=== PATIENT | female | born 1945 | race Caucasian/White ===

== ENCOUNTER 2022-07-17 09:25 | Inpatient (IN) | payer MEDICARE, OTHER ==
[~2022-07-17] VITALS: Ht 167.6 cm; Wt 100.3 kg
[~2022-07-17 09:25] MED LIST: HYDACE5 PO; OXYACE5T PO
[2022-07-17 10:56] LABS: BASOPHILS ABSOLUTE AUTO 0.07 K/mm3 (0.00-0.23); BASOPHILS PERCENT AUTO 0 % (0-2); EOSINOPHILS ABSOLUTE AUTO 0.06 K/mm3 (0.00-0.68); EOSINOPHILS PERCENT AUTO 0 % (0-6); Hematocrit 40.5 % (33.0-51.0); Hemoglobin 13.4 g/dL (11.5-16.0); IMMATURE GRAN ABSOLUTE AUTO 0.12 K/mm3 (0.00-0.10); IMMATURE GRAN PERCENT AUTO 1 % (0-1); LYMPHOCYTES ABSOLUTE AUTO 1.57 K/mm3 (0.84-5.20); LYMPHOCYTES PERCENT AUTO 7 % (21-46); MONOCYTES ABSOLUTE AUTO 1.52 K/mm3 (0.16-1.47); MONOCYTES PERCENT AUTO 7 % (4-13); Mean Corpuscular HGB Conc 33.1 g/dL (31.5-36.5); Mean Corpuscular Volume 88 fL (80-100); Mean Platelet Volume 9.7 fL (9.1-12.4); NEUTROPHILS ABSOLUTE AUTO 19.95 K/mm3 (1.96-9.15); NEUTROPHILS PERCENT AUTO 86 % (41-73); Platelet Count 347 K/mm3 (150-400); RDW Coefficient Variation 15.1 % (11.7-14.2); RDW Standard Deviation 47.1 fL (35.1-46.3); Red Blood Cell Count 4.62 M/mm3 (3.80-5.20); White Blood Cell Count 23.29 K/mm3 (4.00-11.30)
[2022-07-17 11:15] LABS: Source, Urine Straight Cath
[2022-07-17 11:25] LABS: Albumin, Blood 2.1 g/dL (3.4-5.0); Albumin/Globulin Ratio 0.4 (0.8-1.8); Bilirubin, Total 0.7 mg/dL (0.1-1.0); Bun/Creatinine Ratio 17.1 (12.0-20.0); Calcium, Blood 9.3 mg/dL (8.5-10.1); Creatinine, Blood 2.86 mg/dL (0.40-1.00); Globulin, Blood 5.4 g/dL (2.2-4.0); Potassium, Blood 4.5 mmol/L (3.5-5.5); Total Protein, Blood 7.5 g/dL (6.4-8.2)
[2022-07-17 11:31] LABS: Appearance, Urine Hazy (Clear); Bilirubin, Urine Neg (Neg); Blood, Urine 2+ (Neg); Color, Urine Yellow (P-Yellow); Glucose Qualitative, Urine Neg (Neg); Ketones, Urine Neg (Neg); Leukocyte Esterase, Urine 2+ (Neg); Nitrite, Urine Pos (Neg); Protein, Urine 2+ (Neg); Urobilinogen, Urine NORM (Normal)
[2022-07-17 11:59] LABS: Squamous Epithelial Cells Mod /hpf (Few)
[2022-07-17 12:00] LABS: Amorphous Mod (0-Heavy); Bacteria Many /hpf; Mucus Light (0-Heavy)
[2022-07-17 15:29] LABS: Influenza A, PCR NEGATIVE (NEGATIVE); Influenza B, PCR NEGATIVE (NEGATIVE); Resp Syncytial Virus, PCR NEGATIVE (NEGATIVE); SARS-Cov-2 (COVID-19) PCR, MMC NEGATIVE (NEGATIVE)
--- NOTE | 2022-07-17 19:58 | NUR ---
END OF SHIFT SUMMARY: PATIENT ARRIVED TO THE UNIT AT 1722 THIS EVENING. PATIENT ALERT AND ORIENTED X4. PATIENT REQUIRED MULTIPLE STAFF TO SLIDE FROM THE GURNEY TO THE BED. PATIENT IS [place]. POOR HYGIENE NOTED. PATIENT IS VERY RED IN HER GROIN WITH A FOUL ODOR. (NEW ORDERS FROM DR. DELVALLE). PATIENT HAS SCRATCHES ON HER BACK THAT APPEAR TO BE FROM SCRATCHING. PATIENT HAS VERY LONG TOENAILS AND HAD DIRT AND SKIN INBETWEEN HER TOES. PATIENT REPORTS THAT SHE IS RECEPTIVE TO AND ANTICIPATING THE NEED TO GO TO REHAB UPON DISCHARGE. WHEN CLEANING UP THE PATIENT, IT WAS NOTED THAT THE PATIENT HAD DARK REDDISH DISCHARGE AND SMALL CLOTS ON THE WIPES. PATIENT REPORTED IT HAS BEEN A VERY LONG TIME SINCE HER LAST PAP SMEAR OR WOMEN'S HEALTH VISIT. PATIENT REPORTS LOSS OF APPETITE FOR 1-2 WEEKS, BUT THAT SHE HAS BEEN DRINKING PLENTY OF FLUIDS.
[2022-07-18 06:57] LABS: Hematocrit 33.3 % (33.0-51.0); Mean Corpuscular HGB 29.4 pg (26.0-34.0); Mean Corpuscular Volume 89 fL (80-100); Platelet Count 252 K/mm3 (150-400); RDW Coefficient Variation 15.4 % (11.7-14.2); RDW Standard Deviation 47.3 fL (35.1-46.3); Red Blood Cell Count 3.74 M/mm3 (3.80-5.20); White Blood Cell Count 16.03 K/mm3 (4.00-11.30)
[2022-07-18 07:14] LABS: Magnesium, Blood 2.1 mg/dL (1.6-2.4)
[2022-07-18 07:15] LABS: Bun/Creatinine Ratio 17.5 (12.0-20.0); Calcium, Blood 7.9 mg/dL (8.5-10.1); Creatinine, Blood 2.46 mg/dL (0.40-1.00); Potassium, Blood 4.3 mmol/L (3.5-5.5)
--- NOTE | 2022-07-18 07:31 | NUR ---
A/OX3-4; FORGETFUL. EMMONAK. IRRITABLE AT TIMES. DENIES PAIN AT THIS TIME. NYSTATIN TO SKIN FOLD REDNESS PER ORDERS. 2X MAX ASSIST PIVOT TO BSC; REFUSING GOWN AND GAITBELT BED ALARM SET. CARE CLUSTERED/ SLEEP PROMOTED. CALL LIGHT IN REACH, CALLED APPROPRIATELY; ENCOURAGED TO MAKE NEEDS KNOWN.
--- NOTE | 2022-07-18 11:25 | NUR ---
NOTIFIED OF POSITIVE BLOOD CULTURES BY PARISA IN LAB. GRAM POSITIVE COCCI IN CLUSTERS GROWING. MD NOTIFIED AT THIS TIME. NO CHANGE IN PATIENT CONDITION. NO VERBAL ORDERS RECEIVED FROM .
--- NOTE | 2022-07-18 18:05 | NUR ---
SHIFT SUMMARY: PATIENT A&OX3. HABEMATOLEL. PLEASANT, CALM AND COOPERATIVE WITH CARE. USES CALL LIGHT APPROPRIATELY. PATIENT WORK WITH PT MOBILITY IN BED THIS AM. DENIES CP/CHEST DISCOMFORT. DENIES SOB. PATIENT ON RA c SPO2 97%. LUNGS DIMINISHED T/O TO AUSCULTATION. PATIENT HAS BEEN INCONTININCE OF URINE, ATTENDS CHANGED AND Q2 TURN. IV TO L AC SALINE LOCKED AND IV TO R FOREARM INFUSING NS AT 125 MLS/HR. VITAL SIGNS REVIEWED. BED IN LOWEST POSITIONED, LOCKED AND BED ALARM ON FOR SAFETY. CALL LIGHT IN REACH.
[2022-07-19 05:43] LABS: BASOPHILS ABSOLUTE AUTO 0.07 K/mm3 (0.00-0.23); BASOPHILS PERCENT AUTO 1 % (0-2); EOSINOPHILS ABSOLUTE AUTO 0.16 K/mm3 (0.00-0.68); EOSINOPHILS PERCENT AUTO 1 % (0-6); Hematocrit 32.7 % (33.0-51.0); Hemoglobin 10.8 g/dL (11.5-16.0); IMMATURE GRAN ABSOLUTE AUTO 0.07 K/mm3 (0.00-0.10); IMMATURE GRAN PERCENT AUTO 1 % (0-1); LYMPHOCYTES ABSOLUTE AUTO 1.74 K/mm3 (0.84-5.20); LYMPHOCYTES PERCENT AUTO 13 % (21-46); MONOCYTES ABSOLUTE AUTO 0.91 K/mm3 (0.16-1.47); MONOCYTES PERCENT AUTO 7 % (4-13); Mean Corpuscular HGB 29.4 pg (26.0-34.0); Mean Corpuscular Volume 89 fL (80-100); Mean Platelet Volume 9.9 fL (9.1-12.4); NEUTROPHILS ABSOLUTE AUTO 10.77 K/mm3 (1.96-9.15); NEUTROPHILS PERCENT AUTO 79 % (41-73); Platelet Count 251 K/mm3 (150-400); RDW Coefficient Variation 15.4 % (11.7-14.2); RDW Standard Deviation 47.7 fL (35.1-46.3); Red Blood Cell Count 3.67 M/mm3 (3.80-5.20); White Blood Cell Count 13.72 K/mm3 (4.00-11.30)
[2022-07-19 06:02] LABS: Bun/Creatinine Ratio 16.3 (12.0-20.0); Calcium, Blood 7.7 mg/dL (8.5-10.1); Creatinine, Blood 2.21 mg/dL (0.40-1.00); Potassium, Blood 4.2 mmol/L (3.5-5.5)
--- NOTE | 2022-07-19 06:06 | NUR ---
CUSTOMER CONTACT REPRESENTATIVE SUMMARY: A&Ox4. PLEASANT AND COOPERATIVE WITH CARE. CALLS APPROPRIATELY AND ABLE TO COMMUNICATE NEEDS EFFECTIVELY. COMPLIANT WITH LAB DRAW AND HEPARIN ADMINISTRATION LAST NIGHT AND THIS AM IN SPITE OF HAVING "SEVERE FEAR OF PAIN" SHE CALLS IT. NO ACUTE CONCERNS T/O THE NIGHT. VSS. WILL REPORT TO ONCOMING RN.
--- NOTE | 2022-07-19 18:07 | NUR ---
SHIFT SUMMARY: PT A&O X4, PLEASANT AND COMMUNICATES WITH STAFF WELL. PT [place], NO COMPLAINTS OF PAIN. PT HAS INCREASED ANXIETY THROUGHOUT THE SHIFT. DR. LANGSTON ASSESSED PT AND A VERBAL ORDER OF HYDROYZINE 25MG PRN FOR ANXIETY. PT RESPONDED WELL AND WAS ABLE TO PARTICIPATE IN PT. PT HAD FAMILY VISIT AT BEDSIDE THROUGHOUT THE SHIFT. PT IN BED WITH CALL LIGHT WITHIN REACH.
--- NOTE | 2022-07-20 04:09 | NUR ---
SHIFT MOSTLY UNREMARKABLE. PATIENT TOOK 2100 MEDICATIONS WITHOUT DIFFICULTY. INCONTINENT OF URINE. ON CHANGING BRIEF SCANT AMOUNT OF BLOOD AND FOUL ODOR NOTED. PATIENT DENIES PAIN. PATIENT SLEPT THROUGH REMAINDER OF SHIFT. REPOSITIONED Q 2 HOURS. CALL LIGHT LEFT WITHIN REACH.
[2022-07-20 06:23] LABS: BASOPHILS ABSOLUTE AUTO 0.08 K/mm3 (0.00-0.23); BASOPHILS PERCENT AUTO 1 % (0-2); EOSINOPHILS ABSOLUTE AUTO 0.26 K/mm3 (0.00-0.68); EOSINOPHILS PERCENT AUTO 2 % (0-6); Hematocrit 36.2 % (33.0-51.0); Hemoglobin 11.7 g/dL (11.5-16.0); IMMATURE GRAN ABSOLUTE AUTO 0.09 K/mm3 (0.00-0.10); IMMATURE GRAN PERCENT AUTO 1 % (0-1); LYMPHOCYTES ABSOLUTE AUTO 1.81 K/mm3 (0.84-5.20); LYMPHOCYTES PERCENT AUTO 14 % (21-46); MONOCYTES ABSOLUTE AUTO 0.98 K/mm3 (0.16-1.47); MONOCYTES PERCENT AUTO 8 % (4-13); Mean Corpuscular HGB 29.5 pg (26.0-34.0); Mean Corpuscular HGB Conc 32.3 g/dL (31.5-36.5); Mean Corpuscular Volume 91 fL (80-100); Mean Platelet Volume 10.1 fL (9.1-12.4); NEUTROPHILS ABSOLUTE AUTO 9.46 K/mm3 (1.96-9.15); NEUTROPHILS PERCENT AUTO 75 % (41-73); Platelet Count 241 K/mm3 (150-400); RDW Coefficient Variation 16.2 % (11.7-14.2); RDW Standard Deviation 50.9 fL (35.1-46.3); Red Blood Cell Count 3.96 M/mm3 (3.80-5.20); White Blood Cell Count 12.68 K/mm3 (4.00-11.30)
[2022-07-20 07:17] LABS: Albumin, Blood 1.6 g/dL (3.4-5.0); Albumin/Globulin Ratio 0.3 (0.8-1.8); Bilirubin, Total 0.3 mg/dL (0.1-1.0); Bun/Creatinine Ratio 14.4 (12.0-20.0); Creatinine, Blood 2.01 mg/dL (0.40-1.00); Globulin, Blood 4.7 g/dL (2.2-4.0); Potassium, Blood 3.7 mmol/L (3.5-5.5); Total Protein, Blood 6.3 g/dL (6.4-8.2)
[2022-07-20] MEDS ORDERED: CEFD300 PO (12:57)
[2022-07-20] MEDS ORDERED: HYDHCL25 PO (12:58)
[2022-07-20] MEDS ORDERED: MICO100S VAG (12:59)
[2022-07-20] MEDS ORDERED: ONDA4 PO (12:59)
[2022-07-20] MEDS ORDERED: TRAZ50 PO (13:01)
[2022-07-20] MEDS ORDERED: VISBIOME 112.51 EACH PO (13:05)
[2022-07-20 15:00] LABS: Influenza A, PCR NEGATIVE (NEGATIVE); Influenza B, PCR NEGATIVE (NEGATIVE); Resp Syncytial Virus, PCR NEGATIVE (NEGATIVE); SARS-Cov-2 (COVID-19) PCR, MMC NEGATIVE (NEGATIVE)
--- NOTE | 2022-07-20 19:10 | NUR ---
DISCHARGE NOTE: PT A&O X4, PLEASANT AND ANXIOUS. PT DRESSED AND ATTENDS CHANGED, PERSONAL ITEMS PACKED BY DAYNA KHAN. PT IV REMOVED BY PHOTOGRAPHIC LABORATORY TECHNICIAN W/O SHANTA. PT TRANSPORTION ARRIVED WITH , PT TRANSFERED 2 PERSON ASSIST WITH GAIT BELT INTO . TRANSPORTATION ESCORTED PT TO THE [facility] TO BE TRANSPORTED TO [facility]. PT FAMILY NOTIFIED OF PT DISCHARGE TIME AND DESTINATION.
== END 2022-07-20 18:35 | DRG 872 ==
LOC: ER 09:25 → MEDS 13:33 → ERHOLD 13:33 → MEDS 17:26
PROVIDERS: Family Medicine; Nurse Practitioner Acute Care; Student in an Organized Health Care Education/Training Program; ADMIT Internal Medicine
DX: A41.51 Sepsis due to Escherichia coli [E. coli] (principal); N17.9 Acute kidney failure, unspecified; N30.00 Acute cystitis without hematuria; E87.1 Hypo-osmolality and hyponatremia; E87.20 Acidosis, unspecified; R65.20 Severe sepsis without septic shock; E66.01 Morbid (severe) obesity due to excess calories; R39.15 Urgency of urination; N18.9 Chronic kidney disease, unspecified; I12.9 Hypertensive chronic kidney disease with stage 1 through stage 4 chronic kidney disease, or unspecified chronic kidney disease; E86.0 Dehydration; W19.XXXA Unspecified fall, initial encounter; E86.1 Hypovolemia; Z20.822 Contact with and (suspected) exposure to COVID-19; Z23 Encounter for immunization; Z68.35 Body mass index [BMI] 35.0-35.9, adult; Z79.891 Long term (current) use of opiate analgesic; Z87.828 Personal history of other (healed) physical injury and trauma; Z91.14 Patient's other noncompliance with medication regimen
CPT/HCPCS: 0241U; 36415; 51702; 71046; 72170; 80048; 80053; 81001; 82947; 83605; 83735; 85025; 85027; 87040; 87077; 87086; 87186; 90686; 96365-59; 97110; 97161; 97530; 97530-CQ; 99285-25; A9270; G0008; J0696; J1644; J3370; J7030; J7050

== ENCOUNTER → 2022-09-11 | Outpatient (CLI) | payer MEDICARE, OTHER ==
[~2022-09-11] MED LIST changes: +ACET325 PO; +BUSP5 PO; +CEFD300 PO; +GLYCERIN1 EAC1 PR; +HYDHCL25 PO; +LOPE2C PO; +LORA2L PO; +MICO100S; +MICO100S VAG; +MIRALAX17 GM PO; +MORP20L PO; +ONDA4 PO; +SENNA LAXATIVE8.6 MG PO; +SIME80CH PO; +TRAZ50 PO; +VISBIOME 112.51 EACH PO
[2022-09-11 17:54] LABS: Appearance, Urine Clear (Clear); Bilirubin, Urine Neg (Neg); Blood, Urine Neg (Neg); Color, Urine Yellow (P-Yellow); Glucose Qualitative, Urine Neg (Neg); Ketones, Urine Neg (Neg); Leukocyte Esterase, Urine Neg (Neg); Nitrite, Urine Neg (Neg); Protein, Urine 1+ (Neg); Urobilinogen, Urine NORM (Normal)
== END | disposition home or self-care (01) ==
LOC: EDSTATUS 09:55 → LAB UVN 15:00
PROVIDERS: Internal Medicine
DX: N39.0 Urinary tract infection, site not specified (principal)
CPT/HCPCS: 87086

== ENCOUNTER 2022-10-01 09:53 | Inpatient (IN) | payer MEDICARE, OTHER ==
[~2022-10-01] VITALS: Ht 172.7 cm; Wt 96.8 kg
[~2022-10-01 09:53] MED LIST changes: -ACET325 PO; -BUSP5 PO; -GLYCERIN1 EAC1 PR; -LOPE2C PO; -LORA2L PO; -MICO100S; -MIRALAX17 GM PO; -MORP20L PO; -SENNA LAXATIVE8.6 MG PO; -SIME80CH PO
[2022-10-01 10:52] LABS: BASOPHILS ABSOLUTE AUTO 0.09 K/mm3 (0.00-0.23); BASOPHILS PERCENT AUTO 0 % (0-2); EOSINOPHILS ABSOLUTE AUTO 0.19 K/mm3 (0.00-0.68); EOSINOPHILS PERCENT AUTO 1 % (0-6); Hematocrit 36.8 % (33.0-51.0); IMMATURE GRAN ABSOLUTE AUTO 0.19 K/mm3 (0.00-0.10); IMMATURE GRAN PERCENT AUTO 1 % (0-1); LYMPHOCYTES ABSOLUTE AUTO 1.99 K/mm3 (0.84-5.20); LYMPHOCYTES PERCENT AUTO 9 % (21-46); MONOCYTES ABSOLUTE AUTO 1.76 K/mm3 (0.16-1.47); MONOCYTES PERCENT AUTO 8 % (4-13); Mean Corpuscular HGB 30.2 pg (26.0-34.0); Mean Corpuscular HGB Conc 32.6 g/dL (31.5-36.5); Mean Corpuscular Volume 93 fL (80-100); Mean Platelet Volume 9.4 fL (9.1-12.4); NEUTROPHILS ABSOLUTE AUTO 19.12 K/mm3 (1.96-9.15); NEUTROPHILS PERCENT AUTO 82 % (41-73); Platelet Count 711 K/mm3 (150-400); RDW Coefficient Variation 15.9 % (11.7-14.2); RDW Standard Deviation 54.3 fL (35.1-46.3); Red Blood Cell Count 3.98 M/mm3 (3.80-5.20); White Blood Cell Count 23.34 K/mm3 (4.00-11.30)
[2022-10-01 11:04] LABS: Albumin, Blood 1.8 g/dL (3.4-5.0); Albumin/Globulin Ratio 0.3 (0.8-1.8); Bilirubin, Total 0.3 mg/dL (0.1-1.0); Calcium, Blood 8.6 mg/dL (8.5-10.1); Creatinine, Blood 1.52 mg/dL (0.40-1.00); Globulin, Blood 5.5 g/dL (2.2-4.0); Potassium, Blood 4.6 mmol/L (3.5-5.5); Total Protein, Blood 7.3 g/dL (6.4-8.2)
[2022-10-01 11:11] LABS: Source, Urine Straight Cath
[2022-10-01 11:22] LABS: Appearance, Urine Hazy (Clear); Bilirubin, Urine Neg (Neg); Blood, Urine 2+ (Neg); Color, Urine Yellow (P-Yellow); Glucose Qualitative, Urine Neg (Neg); Ketones, Urine Neg (Neg); Leukocyte Esterase, Urine 1+ (Neg); Nitrite, Urine Pos (Neg); Protein, Urine 2+ (Neg); Specific Gravity, Urine 1.025 (1.003-1.022); Urobilinogen, Urine NORM (Normal)
[2022-10-01 12:31] LABS: Bacteria Mod /hpf; Hyaline Casts 0-2 /lpf (0-2); Squamous Epithelial Cells Few /hpf (Few); Uric Acid Crystals Rare /hpf
[2022-10-01] MEDS ORDERED: ACET325 PO (15:22)
[2022-10-01] MEDS ORDERED: BUSP5 PO ×2 (15:23→15:24)
[2022-10-01] MEDS ORDERED: MIRALAX17 GM PO (15:25)
[2022-10-01] MEDS ORDERED: GLYCERIN1 EAC1 PR (15:25)
[2022-10-01] MEDS ORDERED: LOPE2C PO (15:28)
[2022-10-01] MEDS ORDERED: SENNA LAXATIVE8.6 MG PO (15:30)
[2022-10-01] MEDS ORDERED: SIME80CH PO (15:31)
[2022-10-01] MEDS ORDERED: MICO100S (15:33)
[2022-10-01] MEDS ORDERED: TRAZ50 PO (15:35)
[2022-10-02 04:14] LABS: BASOPHILS PERCENT AUTO 1 % (0-2); EOSINOPHILS ABSOLUTE AUTO 0.35 K/mm3 (0.00-0.68); EOSINOPHILS PERCENT AUTO 2 % (0-6); Hematocrit 33.1 % (33.0-51.0); Hemoglobin 10.6 g/dL (11.5-16.0); IMMATURE GRAN ABSOLUTE AUTO 0.17 K/mm3 (0.00-0.10); IMMATURE GRAN PERCENT AUTO 1 % (0-1); LYMPHOCYTES ABSOLUTE AUTO 1.81 K/mm3 (0.84-5.20); LYMPHOCYTES PERCENT AUTO 8 % (21-46); MONOCYTES ABSOLUTE AUTO 1.64 K/mm3 (0.16-1.47); MONOCYTES PERCENT AUTO 8 % (4-13); Mean Corpuscular HGB 29.4 pg (26.0-34.0); Mean Corpuscular Volume 92 fL (80-100); Mean Platelet Volume 9.3 fL (9.1-12.4); NEUTROPHILS ABSOLUTE AUTO 17.79 K/mm3 (1.96-9.15); NEUTROPHILS PERCENT AUTO 81 % (41-73); Platelet Count 601 K/mm3 (150-400); RDW Standard Deviation 54.3 fL (35.1-46.3); White Blood Cell Count 21.86 K/mm3 (4.00-11.30)
[2022-10-02 04:44] LABS: Magnesium, Blood 2.4 mg/dL (1.6-2.4)
[2022-10-02 06:42] LABS: Bun/Creatinine Ratio 19.4 (12.0-20.0); Calcium, Blood 8.2 mg/dL (8.5-10.1); Creatinine, Blood 1.8 mg/dL (0.40-1.00)
[2022-10-02 16:30] LABS: Source, Urine Foley catheter
--- NOTE | 2022-10-02 16:50 | NUR ---
SHIFT SUMMARY PT AOX4, JAQUEZ CATHETER PLACED THIS SHIFT DUE TO ACUTE URINARY RETENTION. PT TOLERATED IT WELL BUT WAS ANXIOUS ABOUT THE PROCEDURE. DR. KIM CAME IN TO SEE HER TODAY TO DISCUSS HER CT RESULTS, EXPLAINING CANCER IS POSSIBLY PRESENT AND A DECISION NEEDS TO BE MADE WHETHER SHE WANTS TO PURSUE POSSIBLE TREATMENT OPTIONS OR BE COMFORTABLE AND GO ON TO HOSPICE. SHE IS STILL PROCESSING AND SPEAKING WITH HER FAMILY. SHE SAID SHE WOULD TRY TO HAVE A DECISION MADE BY TOMORROW. NURSE IS TO CONTACT DR. KIM IF PT WANTS TO BEGIN THE TREATMENT PROCESS. PT HAS BEEN TEARFUL OFF AN ON T/O THE SHIFT, AT TIMES LAUGHING AND OTHER TIMES SOBBING AND PUTTING HER HEAD UNDER HER BLANKETS. PT'S FAMILY IS AWARE OF THE SITUATION BUT SHE WOULD STILL LIKE TO REACH OUT TO A FEW MORE. WILL REPORT TO ONCOMING NURSE.
[2022-10-02 16:53] LABS: Appearance, Urine Hazy (Clear); Bilirubin, Urine Neg (Neg); Blood, Urine 2+ (Neg); Color, Urine Yellow (P-Yellow); Glucose Qualitative, Urine Neg (Neg); Ketones, Urine Neg (Neg); Leukocyte Esterase, Urine 2+ (Neg); Nitrite, Urine Neg (Neg); Protein, Urine 2+ (Neg); Specific Gravity, Urine 1.015 (1.003-1.022); Urobilinogen, Urine NORM (Normal)
[2022-10-02 17:23] LABS: White Blood Cells, Urine 25-50 /hpf (0-5)
[2022-10-02 17:24] LABS: Bacteria Many /hpf; Squamous Epithelial Cells Few /hpf (Few)
--- NOTE | 2022-10-03 05:06 | NUR ---
PT IS A&O2-3, BEDREST, VERY HARD OF HEARING, RA, VSS, PT COMPLAINED OF 10/10 ABDOMINAL PAIN OVERNIGHT PRN PAIN MEDICATION GIVEN, CONTINUE POC
[2022-10-03 06:21] LABS: Hematocrit 31.5 % (33.0-51.0); Hemoglobin 10.3 g/dL (11.5-16.0); Mean Corpuscular HGB Conc 32.7 g/dL (31.5-36.5); Mean Corpuscular Volume 92 fL (80-100); Mean Platelet Volume 9.4 fL (9.1-12.4); Platelet Count 601 K/mm3 (150-400); RDW Coefficient Variation 16.4 % (11.7-14.2); Red Blood Cell Count 3.43 M/mm3 (3.80-5.20); White Blood Cell Count 21.49 K/mm3 (4.00-11.30)
[2022-10-03 06:41] LABS: Albumin, Blood 1.5 g/dL (3.4-5.0); Anion Gap 7 mmol/L (6-16); Blood Urea Nitrogen 36 mg/dL (8-24); Bun/Creatinine Ratio 18.8 (12.0-20.0); CO2, Blood 23 mmol/L (21-32); Calcium, Blood 8.2 mg/dL (8.5-10.1); Chloride, Blood 106 mmol/L (98-108); Creatinine, Blood 1.91 mg/dL (0.40-1.00); Ferritin, Serum 460 ng/mL (8-252); Glomerular Filtration Rate 27 (60-); Glucose, Blood 91 mg/dL (70-99); Iron Serum 20 ug/dL (50-170); Percent Saturation 18.3 % (15.0-50.0); Phosphorus, Blood 3.4 mg/dL (2.5-4.9); Potassium, Blood 4.4 mmol/L (3.5-5.5); Sodium, Blood 136 mmol/L (136-145); Total Iron Binding Capacity 109 ug/dL (250-450)
--- NOTE | 2022-10-03 18:08 | NUR ---
SHIFT SUMMARY PT AOX4, FAMILY AT THE BS T/O THE SHIFT. PALLIATIVE CARE CAME AND SPOKE WITH THE PT ABOUT DECISION TO DO FURTHER TESTING OR TO GO HOSPICE. SHE DECIDED TO GET FURTHER TESTING AND THE CALL WAS MADE TO DR. KIM. PALLIATIVE CARE DISCUSSED THIS CONVERSATION WITH BOTH THE HOSPITALIST AND DR. CAMARA OFFICE. HER CATHETER IS STILL PATENT AND DRAINING. PT C/O PAIN EARLIER IN THE SHIFT AND WAS MEDICATED PER THE EMAR. WILL REPORT TO ONCOMING NURSE.
--- NOTE | 2022-10-03 18:40 | NUR ---
Initial palliative care consult: Nandini is a 77 year old with a history of morbid obesity, HTN and UTI. She fell back in August 2022 and has been at rehab since her fall. She has been accepted at a new foster home and was orginally planning to be moved from rehab to her foster home this week. She was admitted to [facility] on 10/01/22 with a UTI and findings of a new uterine mass. Nandini is [place]. She is anxious and tearful. Erlin, her "Goddaughter" and POA is supportive and at the bedside. Nandini reports she is overwhelmed by the new findings of this mass. She tears up often and buries her face in her hands. She reports that for many years she has had trouble with sleeping. She states she is afraid to go to sleep because she is afraid that she won't wake up. Erlin reports Nandini is always anxious and is very sensitive to conversations about her health. Nandini is now afraid of what this new mass is. Erlin reports Dr. Brandon spoke with her and Nandini yesterday about this new mass and the two options she has at this point. Option one is to do a work up of this mass, scans and likely a biopsy to determine the type and severity of the disease. The second option would be chosing to go home to her foster prison with hospice. Nandini was very upset when discussing hospice as an option. She stated that she was afraid she would be sent home to . Explained to Nandini and Erlin the hospice philosophy. Asked them what questions they had about their conversation with Dr. Brandon yesterday. Erlin reports that they have had a chance to talk about the options and would like to proceed with a workup to determine the type of tumor. Once they have the work up information they will talk to Dr. Brandon about treatment options and make a decision. Nandini would like to remain a full code for now. Did not talk much about code status as Nandini's priority at this time is about getting answers for her tumor. Erlin is very supportive of Nandini. Erlin left room with this scientific writer and spoke outside to me. Erlin states she is aware of the severity of this tumor and that it has most likely spread and will be incurable. She is supportive of the work up to find answers. She reports that she will support Nandini in her choices. Erlin is open to having hospice care when Nandini feels that time is right for her. Spoke with Dr. Brandon's office staff, Jesusita, and let her know that Nandini would like to pursue a workup. Jesusita reports Dr. Brandon will place orders to get the workup started. Spoke with Dr. Stacy and updated her on pt's wishes to pursue workup. Also relayed concerns of pt's anxiety and her fear of going to sleep. Pt will benefit from getting her anxiety under control. Dr. Stacy states she will review pt's home meds and consider ordering medication for pt's anxiety. Nursing updated on plan going forward. Erlin and Nandini in agreement with plan at this time. Palliative care to continue to assist with symptom management and advanced care planning prn.
[2022-10-04 05:15] LABS: Hematocrit 32.6 % (33.0-51.0); Hemoglobin 9.8 g/dL (11.5-16.0); Mean Corpuscular HGB 29.8 pg (26.0-34.0); Mean Corpuscular HGB Conc 30.1 g/dL (31.5-36.5); Mean Platelet Volume 10.1 fL (9.1-12.4); NRBC ABSOLUTE 0.02 K/mm3 (0.00-0.02); NRBC Auto 0.1 /100 WBC (0.0-0.2); Platelet Count 498 K/mm3 (150-400); RDW Coefficient Variation 16.9 % (11.7-14.2); RDW Standard Deviation 61.4 fL (35.1-46.3); Red Blood Cell Count 3.29 M/mm3 (3.80-5.20); White Blood Cell Count 23.12 K/mm3 (4.00-11.30)
--- NOTE | 2022-10-04 05:26 | NUR ---
PODIATRIST ORTHOPEDIC SUMMARY PT A/OX4. ANXIOUS, WITHDRAWN, AND EASILY TEARFUL. PT TALKED A LITTLE ABOUT NEW DX OF METS CA; EMOTIONAL AND STATES SHE DOESN'T TALK TO CHILDREN--PROVIDED THERAPEUTIC LISTENING. PT HAD EPISODE OF VOMITTING; MED W/ZOFRAN. 2X EPISODES OF LOOSE STOOLS. STOOL BLACK IN COLOR W/STRONG ODOR. NEW ORDER FOR GUIAIC SCREEN--SAMPLE SENT TO LAB. PT CALL APPROPRIATELY. REPORTS DIFFICULTY SLEEPING HOWEVER PT WAS SLEEPING OFTEN DURING ROUNDING. CALL LIGHT ACCESSIBLE.
[2022-10-04 05:58] LABS: Mean Corpuscular Volume 99 fL (80-100)
[2022-10-04 08:55] LABS: Stool Occult Blood Guaiac 1 Pos (Neg)
[2022-10-04 09:08] LABS: International Normalized Ratio 1.14; Prothrombin Time Results 11.9 Sec (9.7-11.5)
[2022-10-04 15:37] LABS: Hematocrit 25.6 % (33.0-51.0); Hemoglobin 8.4 g/dL (11.5-16.0)
--- NOTE | 2022-10-04 17:00 | NUR ---
RECEIVED PT FROM ROOM 360 VIA BED. PT IS A&O X 4. [place]. PT CAN HEAR BEST FROM HER RIGHT EAR. PT REPORTS THAT SHE IS FEELING ANXIOUS. PT ALSO STATES THAT HER ABDOMEN HURTS AND RATES HER PAIN A 10/10. ECG SHOWS SR WITH RATE 90'S. MAP TRENDING >65. PT HAD FLUID BOLUSES ORDERED ON MEDICAL FLOOR, BUT IT IS UNCLEAR HOW MUCH FLUID WAS GIVEN. ON ARRIVAL, PT HAD A BAG ON NS INFUSING THAT WAS A LITTLE OVER HALF WAY INFUSED. NS @ 125 CC/HR. PT IS TO BE NPO SHE HAS HAD GI BLEEDING. PT INCONTINENT OF MELENA STOOL WITH CLOTS. PROTONIX 80 MG BOLUS GIVEN, THEN PROTONIX DRIP INITIATED @ 8 MG/HR=10 CC/HR. PT HAS ONE PIV TO LEFT AC THAT IS POSITIONAL. PT IS DIFFICULT VENIPUNCTURE AND UNABLE TO OBTAIN ADDITIONAL IV. PT SKIN IS VERY PALE AND FRAIL. PT ASKED IF SHE IS AWARE OF THE REASON THAT SHE IS HAVING ABDOMINAL PAIN. PT STATES THAT SHE HAS "CANCER" AND SHE BECAME TEARFUL. PT STATES "THEY TELL ME IT IS EITHER QUALITY OR QUANTITY AT THIS POINT. ALL I WANT IS TO SEE MY GRAND KIDS A FEW MORE TIMES AND TO FEEL A TINY BIT BETTER IF I CAN." PALLIATIVE CARE HAS BEEN CONSULTED. TYRONE FROM PALLIATIVE CARE IN TO SEE PT.PT STATES HER DESIRE TO BE DNR. DNR BAND PLACED TO LEFT WRIST.
--- NOTE | 2022-10-04 17:29 | NUR ---
Spoke with Primary RN Sara reporting Pt being transfered to ICU for hypotension. Pt may benefit from conversation rearding code status wishes. Pt resting in bed upon arrival. Engaged in therapeutic conversation regarding code status. Educated on life sustaining treatments including risk and implications of CPR. Pt reports her wishes are DNR. Offered supportive visit and therapeutic listening. Brief review of plan of care. Spoke with Dr Stacy and placed DNR order in [facility] per V/O from Dr Stacy. Palliative Care will remain available.
[2022-10-04 17:34] LABS: Albumin, Blood 1.4 g/dL (3.4-5.0); Anion Gap 5 mmol/L (6-16); Blood Urea Nitrogen 44 mg/dL (8-24); Bun/Creatinine Ratio 24.9 (12.0-20.0); CO2, Blood 22 mmol/L (21-32); Calcium, Blood 8.2 mg/dL (8.5-10.1); Chloride, Blood 108 mmol/L (98-108); Creatinine, Blood 1.77 mg/dL (0.40-1.00); Glomerular Filtration Rate 29 (60-); Glucose, Blood 90 mg/dL (70-99); Phosphorus, Blood 3.2 mg/dL (2.5-4.9); Potassium, Blood 5.2 mmol/L (3.5-5.5); Sodium, Blood 135 mmol/L (136-145)
--- NOTE | 2022-10-04 17:47 | NUR ---
PT MEDICATED WITH FENTANYL 50 MCG IVP X 1 FOR PAIN AND ATIVAN 1 MG IVP X 1 FOR ANXIETY.
--- NOTE | 2022-10-04 18:00 | NUR ---
PT STATES THAT SHE FEELS BETTER SINCE GIVEN THE FENTANYL AND ATIVAN. PT INCONTINENT OF A LARGE AMOUNT OF MELENA STOOL WITH CLOTS. CAROLINE/CATH CARE DONE, NEW CHRISTIE, DRY FLOW, AND ATTENDS. PT BOOSTED IN BED. PT STATES "THANK YOU SO MUCH FOR EVERYTHING, BUT CAN YOU LEAVE ME ALONE AND LET ME SLEEP NOW?" CALL LIGHT WITHIN REACH. WILL REPORT TO ONCOMING SHIFT.
--- NOTE | 2022-10-04 19:42 | NUR ---
SHIFT SUMMARY PTN WITH FRIEND AT BEDSIDE FOR MORNING. PTN ALERT AND TEARFUL AT TIMES. PTN WITH NEW NEWS OF CA AND HAD NEEDLE BIPOSY DONE. PTN HAD TWO EPISODES LOOSE BLACK STOOLS, POSITIVE FOR BLOOD. PTN TRANSFERRED TO ICU FOR CLOSER OBSERVATION AND CARE.
--- NOTE | 2022-10-04 20:00 | NUR ---
ASSUMED CARE OF PT AT 1900. REPORT RECEIVED AT BEDSIDE. PT PRESENTS IN BED. ALERT AND SOMEWHAT DISORIENTED. PT COMMENTS ON A PAINTING IN THE ROOM THAT LOOKS LIKE "SPAGHETTI AND MEATBALLS". NO PAINTING IN ROOM THAT SHE REFERS. PT ANXIOUS WITH ALL CARE. SOMEWHAT DIFFICULT TO OBTAIN OXYGEN SATURATION. WHEN OXIMETER READING WITH GOOD PLETH, PT'S SATURATIONS > 95 PERCENT. WILL DO SPOT CHECKS. WILL REVIEW CHART AND PLAN OF CARE FOR THIS PT.
[2022-10-04 21:11] LABS: Hematocrit 22.3 % (33.0-51.0); Hemoglobin 7.2 g/dL (11.5-16.0)
--- NOTE | 2022-10-04 22:00 | NUR ---
PT TO RECEIVE UNIT PRBC'S THIS NIGHT. PT HAS INCREASING CONFUSION AND CRIES OUT. HAVE MEDICATED PT WITH FENTANYL WITH SOME RELIEF. ATIVAN PRN HAS HELPED EASE PT SOME.
--- NOTE | 2022-10-05 04:48 | NUR ---
PT HAS TWO IV'S THAT HAVE GONE BAD THIS NIGHT. BEGINS LEAKING. HAVE DC'D BOTH WITH NO ISSUES. CATHETER TIPS INTACT. SEVERAL ATTEMPTS TO PLACE PERIPHERAL IV'S UNSUCCESSFUL. PT WAS IN PROCESS OF BLOOD TRANSFUSION WHEN IV'S WENT BAD. DR MCCALLUM GRACIOUSLY CAME TO ROOM AND PLACED QUAD LUMEN CENTRAL LINE IN RIGHT IJ. PT TOLERATED THIS PROCEDURE POORLY. BECOMES PANICKED WITH DRAPING. ORDERS RECEIVED. SEVERAL DOSES OF ZYPREXA GIVEN IM, AND TWO DOSES OF 1 MG ATIVAN EACH GIVEN IM. THIS CALMS PT SOME. IS ABLE TO COMPLETE PROCEDURE WITH SOME ANXIOUSNESS. PT MEDICATED AGAIN WITH FENTANYL FOR COMPLAINTS OF ABDOMINAL PAIN. BLOOD PRESSURES HAVE IMPROVED AFTER FLUIDS, AND UNIT PRBC'S. MAP MAINTAINS > 65. WILL CONTINUE TO MONITOR PT, AND WILL REPORT OFF TO ONCOMING RN.
[2022-10-05 05:02] LABS: Hematocrit 24.8 % (33.0-51.0); Hemoglobin 8.1 g/dL (11.5-16.0); Mean Corpuscular HGB 30.1 pg (26.0-34.0); Mean Corpuscular HGB Conc 32.7 g/dL (31.5-36.5); Mean Platelet Volume 9.5 fL (9.1-12.4); Platelet Count 493 K/mm3 (150-400); RDW Coefficient Variation 15.7 % (11.7-14.2); RDW Standard Deviation 51.8 fL (35.1-46.3); Red Blood Cell Count 2.69 M/mm3 (3.80-5.20); White Blood Cell Count 25.34 K/mm3 (4.00-11.30)
[2022-10-05 05:05] LABS: Bun/Creatinine Ratio 33.5 (12.0-20.0); Calcium, Blood 8.1 mg/dL (8.5-10.1); Creatinine, Blood 1.85 mg/dL (0.40-1.00); Potassium, Blood 4.5 mmol/L (3.5-5.5)
[2022-10-05 05:18] LABS: Mean Corpuscular Volume 92 fL (80-100)
--- NOTE | 2022-10-05 10:16 | NUR ---
ASSUMED CARE NOTE: ASSUMED CARE OF PT AT 0700. PT IS ALERT AND ORIENTED TO SELF/PLACE/YEAR. PT ON ROOM AIR WITH SPO2 ABOVE 90% NO RESP DISTRESS NOTED. PT IN SR WITH HR IN THE 90'S, BP STABLE. SPOKE TO GOD-DAUGHTER WITH UPDATE, WISHES TO SPEAK WITH PALLITIVE CARE REGARDING PLAN OF CARE.
--- NOTE | 2022-10-05 11:44 | NUR ---
Pt resting in bed and is pleasantly confused pulling at tele lines. Pt's friend Amisha is at bedside. Amisha reports Alaynar Pt's goddaughter (POA) is her daughter. Offered therapeutic listening as Amisha reports her and Erlin are now wanting to hospice services. Called and spoke with Goddaughter Erlin. Reviewed plan of care and offered therapeutic listening. Erlin confirms goals are to get Pt back to her adult foster home with hospice services. She reports wanting to cancel procedure today. Erlin also reports not wanting to pursue comfort care here at the hospital. Erlin reports not knowing what hospice agency and request that caremanagement call adult foster home to determine hospice preference and to coordinated with adult foster home for D/C plan. No other concerns at this time. Spoke with Dr Stacy and relayed wishes. Spoke with Primary RN Mojgan and relayed wishes. Palliative Care will remain available.
[2022-10-05 13:28] LABS: Hematocrit 22.1 % (33.0-51.0); Hemoglobin 7.4 g/dL (11.5-16.0)
--- NOTE | 2022-10-05 17:16 | NUR ---
SHIFT SUMMARY: PT REMAINS ALERT AND ORIENTED TO SELF, PLACE AND YEAR. HOWEVER, CONTINUES TO BE CONFUSED AND PULLS ON ESSENTIAL LINES. PT HAS DENIED PAIN T/O SHIFT. ABDIRAHMAN MEDINA SPOKE WITH PALLATIVE CARE TODAY AND MADE THE DECISION TO TRANSFER TO HOSPICE CARE ON 10/06/22, PT WILL BE GOING BACK TO [facility] AT 1200 TOMORROW. STAFF TO CONTINUE WITH PLAN OF CARE UNTIL THEN PER ORDERS. PT ON RA WITH SPO2 ABOVE 90% NO RESP DISTRESS NOTED. PT HAS BEEN IN SR WITH HR IN THE 80-90'S, BP SOFT, MAP'S ABOVE 60. PT HAD ONE LARGE DARK BURGUNDY STOOL, MD AWARE, ORDERS TO MONITOR H&H Q6HR GIVEN. JAQUEZ PATENT, DRAINING TO GRAVITY. BILATERAL SWR REMOVED, SAFETY ATTENDENT AT BEDSIDE.
[2022-10-05 19:10] LABS: Hematocrit 21.7 % (33.0-51.0); Hemoglobin 7.4 g/dL (11.5-16.0)
--- NOTE | 2022-10-05 20:00 | NUR ---
ASSUMED CARE OF PT AT 1915. REPORT RECEIVED AT BEDSIDE. PT PRESENTS IN BED. ALERT AND PLEASANTLY CONFUSED. PT NOTED TO BE PICKING AT AIR. CONVERSATION IS UNRELATED TO TOPIC GIVEN. PT HAS 1:1 SITTER PRESENT AT BEDSIDE TO PROTECT PT FROM PULLING AT VITAL LINES INCLUDIDING THE RIJ. PT DOES DENY PAIN WHEN ASKED. NO BM'S OF YET THIS SHIFT. WILL REVIEW CHART AND PLAN OF CARE FOR THIS PT.
--- NOTE | 2022-10-05 23:24 | NUR ---
PT TRANSFERED FROM ICU. THIS RN TO ASSUME CARE AT THIS TIME. WILL REVIEW PREVIOUS SHIFT ASSESSMENT. VSS AT THIS TIME. PT TRANSFERED TO NEW BED VIA SLIDER AND LINENS CHANGED. ATTENDS CHANGED AND ARE C/D/I AT THIS TIME. JAQUEZ PRESENT, PATENT AND DRAINING TO GRAVITY. CENTRAL LINE STILL INFUSING FLUIDS AND PROTONIX. SITTER PRESENT IN ROOM. REPORTS RECEIVED FROM JARON GREENWOOD IN ICU.
--- NOTE | 2022-10-05 23:24 | NUR ---
PT TRANSFERS TO ROOM 224 WITH SITTER. WILL GIVE COMPLETE REPORT TO RECEIVING NURSE. PT LEAVES UNIT AT 2312
[2022-10-06 01:53] LABS: Hematocrit 22.3 % (33.0-51.0); Hemoglobin 7.3 g/dL (11.5-16.0)
--- NOTE | 2022-10-06 05:34 | NUR ---
SHIFT SUMMARY: PT REMAINS SLIGHTLY ANXIOUS AND CONFUSED. REMAINS NPO AT THIS TIME. SITTER PRESENT DURING SHIFT. JAQUEZ REMAINS PATENT AND DRAINING TO GRAVITY. REPORTED NO PAIN. FLUIDS CONTINUE TO RUN WELL PROTONIX. ATTENDS IN PLACE, ONE TARRY STOOL NOTED DURING THE SHIFT. CENTRAL LINE REMAINS IN PLACE AT THIS TIME AND IS INFUSING WITH FLUIDS. PLANS TO [facility] WITH HOSPICE CARE TO FOLLOW.
[2022-10-06 09:46] LABS: Hematocrit 21.7 % (33.0-51.0); Hemoglobin 7.2 g/dL (11.5-16.0)
[2022-10-06] MEDS ORDERED: LORA2L PO (11:28)
[2022-10-06] MEDS ORDERED: MORP20L PO (11:29)
--- NOTE | 2022-10-06 11:49 | NUR ---
PT LEFT UNIT ON JOHN POSSESSIONS AND DC PAPERWORK/PRESCRIPTIONS W/PT.
--- NOTE | 2022-10-06 14:49 | NUR ---
RECEIVED CALL FROM [facility] TEAM IN REGARDS TO PT CODE STATUS AND POA. RETURNED CALL TO HELP SORT THROUGH THESE CONCERNS, NO ANSWER. LEFT A DETAILED MESSAGE FOR A RETURN CALL.
== END 2022-10-06 11:51 | disposition hospice, home (50) | DRG 823 ==
LOC: ER 09:53 → ICUW 13:30 → MEDS 13:30 → ICUW 10-04 17:16 → SURS 10-05 23:20
PROVIDERS: Internal Medicine; Nurse Practitioner Acute Care; Student in an Organized Health Care Education/Training Program; ADMIT Internal Medicine
PROC: 0T9B70Z Drainage of Bladder with Drainage Device, Via Natural or Artificial Opening (ICD-10-PCS; 2022-10-02)
PROC: 30233N1 Transfusion of Nonautologous Red Blood Cells into Peripheral Vein, Percutaneous Approach (ICD-10-PCS; 2022-10-04)
PROC: 07B23ZX Excision of Left Neck Lymphatic, Percutaneous Approach, Diagnostic (ICD-10-PCS; 2022-10-04)
PROC: 02HV33Z Insertion of Infusion Device into Superior Vena Cava, Percutaneous Approach (ICD-10-PCS; principal; 2022-10-05)
DX: C77.0 Secondary and unspecified malignant neoplasm of lymph nodes of head, face and neck (principal); G92.8 Other toxic encephalopathy; N39.0 Urinary tract infection, site not specified; K92.2 Gastrointestinal hemorrhage, unspecified; D62 Acute posthemorrhagic anemia; N18.4 Chronic kidney disease, stage 4 (severe); E87.1 Hypo-osmolality and hyponatremia; C78.02 Secondary malignant neoplasm of left lung; C78.01 Secondary malignant neoplasm of right lung; C78.1 Secondary malignant neoplasm of mediastinum; C77.2 Secondary and unspecified malignant neoplasm of intra-abdominal lymph nodes; C54.1 Malignant neoplasm of endometrium; Z66 Do not resuscitate; Z51.5 Encounter for palliative care; I95.9 Hypotension, unspecified; D75.839 Thrombocytosis, unspecified; N13.9 Obstructive and reflux uropathy, unspecified; E66.01 Morbid (severe) obesity due to excess calories; F41.9 Anxiety disorder, unspecified; I12.9 Hypertensive chronic kidney disease with stage 1 through stage 4 chronic kidney disease, or unspecified chronic kidney disease; E86.0 Dehydration; D63.1 Anemia in chronic kidney disease; B96.20 Unspecified Escherichia coli [E. coli] as the cause of diseases classified elsewhere; Z79.899 Other long term (current) drug therapy; Z68.31 Body mass index [BMI] 31.0-31.9, adult
CPT/HCPCS: 36415; 36430; 36556; 70470; 71045; 71260; 74177; 80048; 80053; 80069; 81001; 82270; 82728; 83540; 83550; 83605; 83735; 85014; 85018; 85025; 85027; 85610; 86850; 86900; 86901; 86923; 87040; 87077; 87086; 87186; 96361; 96374-59; 96375-59; 97165; 97530; 99285-25; A9270; C1751; C9113; J0696; J1644; J1885; J2060; J2405; J3010; J7030; J7120; P9016; P9612; Q9967